=== PATIENT | male | born 1955 | race Caucasian/White ===

== ENCOUNTER → 2016-04-05 | Day surgery (SDC) | payer OTHER ==
[~2016-04-05] MED LIST: BUPIVACAINE HCL PF 0.75% 30 ML VIAL ONE; LACTATED RINGER'S 1000 ML INJ 1,000 ML ONE; LIDOCAINE 1.5%/EPINEPHrine 1:200,000 PF SOLN 30 ML AMP ONE; MIDAZOLAM HCL 2 MG/2 ML VIAL ONE; MIDAZOLAM HCL 5 MG/ML VIAL (1 ML) ONE; PROPOFOL 200 MG/20 ML AMP IV ONE; ceFAZolin 2 GM PREMIX 50 ML ONE; oxyCODONE/ACETAMINOPHEN 5 MG/325 MG TAB ONE
--- NOTE | 2016-04-06 08:27 | MP ---
cc: DESMOND ETIENNE M.D. 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 PROCEDURE 1. Right shoulder arthroscopic rotator cuff repair using Arthrex metallic suture anchor x4 each with two #2 FiberWire and one BioComposite PushLock suture anchor. 2. Right shoulder arthroscopic subacromial decompression. ANESTHESIA Interscalene block and general SURGEON Desmond Etienne MD MANAGER KNOWLEDGE SURGEON [place] ESTIMATED BLOOD LOSS Minimal DRAINS None SPECIMEN None COMPLICATIONS None known INDICATION Rashawn Sierra is a 60-year-old male with a prior history of rotator cuff repair on the left shoulder which worked for some period time and then went on to fail. He now has chronic disability of his right shoulder and he cannot reach overhead with the right shoulder. MRI scan shows a massive rotator cuff tear. The risks, benefits and the options of treatment were thoroughly discussed and we came to a combined decision of moving ahead with attempted rotator cuff repair understanding long-term that he may require the bigger surgery reverse shoulder arthroplasty. The risks and benefits were thoroughly discussed and a detailed informed consent was obtained. The first grade teacher, Sergio Caballero, who is an advanced registered nurse practitioner who sub-specialized in orthopedic surgery and his skill set was medically necessary for the performance of the operation. PROCEDURE The patient was brought into the operating room. He was placed under general anesthesia. He was had been given an interscalene block in the preop holding area. He was turned into the lateral decubitus position right shoulder up, axillary roll in place. The right shoulder was draped and prepped in the usual sterile fashion. IV antibiotics were given. Time-out completed. A portal made posteriorly and blunt trocar used to introduce the cannula and we did note some fraying of the posterior labrum inferiorly. We noted a massive rotator cuff tear and made our lateral based portal and came in with a shaver and debrided the posterior labrum. The biceps tendon was noted be torn. The third photograph actually looks like we are looking at a biceps tendon, but that is actually the retracted rotator cuff tear. We debrided the hypertrophic tissue on the edge of the labrum and went into the subacromial space and identified anterior acromial spurring and performed anterior acromionectomy removing approximately 5 mm of bone off the most anterior aspect. Meticulous hemostasis as we well along and then we proceeded to place a temporary suture in the cuff and then through this, we were able to release along the margin between the superior labrum and the rotator cuff and the mobilization significantly improved. Based on how big the tear was, we decided to use metallic anchors and pull it to the footprint. We debrided down to the footprint and had good bleeding bone and then started posteriorly with the infraspinatus and placed one anchor and passed these stitches and pulled this into position and then the second anchor about a 1/2 cm in from this and then a third anchor a half a centimeter front of this. We did do some [id number] suturing and then the fourth anchor was placed and then we had a small dog ear, so we made a decision to use a lateral BioComposite PushLock anchor to more solidify the rotator interval portion of the tear and the direct supraspinatus portion of the tear. Final photographs looked very good. We showed the decompression. We showed the repair and everything was solid. We had very good hemostasis. Arthroscopic equipment was removed. We closed in layers with absorbable sutures, subcuticular on the skin. Steri-Strips applied. Sterile dressing applied. The patient was awoken return recovery room in stable condition. MD NABEEL Pavon/EDGARD /1:39 PM /8:14 AM
== END | disposition home or self-care (01) ==
LOC: ESDC 10:09
PROVIDERS: ATTEND Orthopaedic Surgery Sports Medicine
DX: M75.121 Complete rotator cuff tear or rupture of right shoulder, not specified as traumatic (principal); M75.41 Impingement syndrome of right shoulder; S46.211A Strain of muscle, fascia and tendon of other parts of biceps, right arm, initial encounter
CPT/HCPCS: 01630; 01991; 29826; 29827; 64417; C1713; J0690; J2250; J3010; J7120